=== PATIENT | male | born 1945 | race Caucasian/White ===

== ENCOUNTER 2018-03-14 12:35 | Emergency (ER) | payer OTHER, MEDICARE ==
[~2018-03-14] VITALS: Ht 182.9 cm; Wt 99.8 kg
[2018-03-14 12:44] VITALS: BP_SYST 127
[2018-03-14] MEDS ORDERED: HYDROcodone/ACETAMIN 10-325 MG TAB PO ONE (13:45)
[2018-03-14 14:12] VITALS: BP_SYST 127
== END 2018-03-14 14:12 | disposition home or self-care (01) ==
LOC: SED 12:35
DX: S22.42XA Multiple fractures of ribs, left side, initial encounter for closed fracture (principal); R03.0 Elevated blood-pressure reading, without diagnosis of hypertension; Z88.2 Allergy status to sulfonamides; W06.XXXA Fall from bed, initial encounter; Y93.89 Activity, other specified; Y92.89 Other specified places as the place of occurrence of the external cause; Y99.8 Other external cause status
CPT/HCPCS: 71045; 71100; 99284